=== PATIENT | male | born 1985 | race Caucasian/White ===

== ENCOUNTER 2021-02-14 19:33 | Emergency (ER) | payer OTHER ==
[~2021-02-14] VITALS: Ht 185.4 cm; Wt 90.7 kg
[2021-02-14] MEDS ORDERED: MUCINEX1200 M1 PO (21:36)
[2021-02-14] MEDS ORDERED: TESSALON PERLE100 MG PO (21:36)
[2021-02-14] MEDS ORDERED: PREDNISONE20 M1 PO (21:36)
== END 2021-02-14 21:38 | disposition home or self-care (01) ==
LOC: ED 19:33
DX: J20.9 Acute bronchitis, unspecified (principal); Z20.822 Contact with and (suspected) exposure to COVID-19; B34.9 Viral infection, unspecified